=== PATIENT | male | born 1960 | race Caucasian/White ===

== ENCOUNTER 2019-11-06 05:40 | Emergency (ER) | payer BC, OTHER ==
--- NOTE | 2019-11-06 05:50 | ED.PDOC ---
History of Present Illness - General Chief Complaint: Respiratory Problem Stated Complaint: right side pain, SOB Time Seen by Provider: 11/06/19 05:41 Source: patient, RN notes reviewed, Vital Signs reviewed Exam Limitations: no limitations - History of Present Illness Initial Comments: Pt is a 59 yo male wwith [facility] of [facility], on Xarelto, who presents to ED with 1 week h/o right neck and chest pain. 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 The pain has gotten worse and now invlves right chest area. Describes it as his chest "feels thick." Has had mild SOB. Denies fever, cough, nausea, near syncope, abdominal pain or other concerns. Allergies/Adverse Reactions: Allergies NO KNOWN ALLERGY Allergy (Verified 11/06/19 05:53) Home Medications: Ambulatory Orders Acetaminophen W/ Codeine [Tylenol W/ CODEINE #3] 1 tablet PO Q6H PRN #20 11/06/19 Cyclobenzaprine HCl [Flexeril] 10 mg PO Q8H PRN #15 tab 11/06/19 Losartan Potassium 50 mg PO DAILY 11/06/19 Rivaroxaban [Xarelto] 20 mg PO DAILY 11/06/19 Rosuvastatin Calcium 10 mg PO DAILY 11/06/19 Review of Systems - Review of Systems Constitutional: Denies: chills, fever, weakness EENTM: Denies: blurred vision, nose congestion, throat pain Respiratory: States: short of breath. Denies: cough, wheezing Cardiology: States: chest pain. Denies: edema, palpitations, syncope Gastrointestinal/Abdominal: Denies: abdominal pain, nausea, vomiting Genitourinary: Denies: dysuria, frequency, hematuria Musculoskeletal: States: muscle pain, neck pain Skin: States: no symptoms reported Neurological: Denies: headache, paresthesia, weakness Endocrine: States: no symptoms reported All other Systems: Reviewed and Negative Family Medical History - Family History Mother Family History: Unknown Physical Exam - Physical Exam General Appearance: Alert, Comfortable, No apparent distress Ears, Nose, Throat: normal pharynx Neck: other - No vertebral tenderness. TTP right paraspinous muscles and right trapezius Respiratory: chest non-tender, lungs clear, normal breath sounds, no respiratory distress, no accessory muscle use Cardiovascular/Chest: normal peripheral pulses, no edema, irregularly irregular Gastrointestinal/Abdominal: non tender, soft, no pulsatile mass Back Exam: no CVA tenderness, no vertebral tenderness Extremity: normal range of motion, non-tender, normal inspection, no pedal edema Neurologic: no motor/sensory deficits, alert, normal mood/affect Skin Exam: normal color, warm/dry Progress - Progress Progress: 11/06/19 06:56 Pt resting comfortably. Pain improved. Denies SOB. D/W pt negative D dimer and initial troponin. he agrees with repeat troponin in ED. Care transferred to Dr. Blanco for final dispo. - Results/Orders Results/Orders: EKG--atrial fibrillation, rate 81, nml QRS interval, nonspecific T wave abnormality Departure - Departure Clinical Impression: Atypical chest pain, Muscle strain A-fib Qualifiers: Atrial fibrillation type: longstanding persistent Qualified Code(s): I48.11 - Longstanding persistent atrial fibrillation Disposition: Discharge to Home or Self Care Condition: Good Departure Forms: ED Discharge - Pt. Copy, Patient Portal Self Enrollment Instructions: Muscle Strain (DC) Diet: resume usual diet Activity: increase activity as tolerated Prescriptions: Acetaminophen W/ Codeine [Tylenol W/ CODEINE #3] 1 tablet PO Q6H PRN #20 PRN Reason: Pain Cyclobenzaprine HCl [Flexeril] 10 mg PO Q8H PRN #15 tab PRN Reason: Mild To Moderate Pain Home Medications: Ambulatory Orders Acetaminophen W/ Codeine [Tylenol W/ CODEINE #3] 1 tablet PO Q6H PRN #20 11/06/19 Cyclobenzaprine HCl [Flexeril] 10 mg PO Q8H PRN #15 tab 11/06/19 Losartan Potassium 50 mg PO DAILY 11/06/19 Rivaroxaban [Xarelto] 20 mg PO DAILY 11/06/19 Rosuvastatin Calcium 10 mg PO DAILY 11/06/19 Comments: Follow up with your PCP in 1-2 days for recheck.
[2019-11-06] MEDS: ONDANSETRON INJ 4 MG/2 ML VIAL IV ONE (06:01)
[2019-11-06] MEDS: MORPHINE SULFATE INJ 10 MG/ML VIAL IV ONE (06:01)
--- NOTE | 2019-11-06 07:23 | RAD ---
EXAM: Chest,1 View HISTORY: right chest pain COMPARISON: None. TECHNIQUE: Chest one view AP FINDINGS: Trachea midline. Heart size normal. No consolidation, pulmonary edema, lung mass, pleural effusion, or pneumothorax. Thoracic spine degenerative disease. IMPRESSION: Unremarkable chest radiograph. Electronically signed by: Gerald Pascual MD 11/06/2019 7:21 AM CDT
--- NOTE | 2019-11-06 07:29 | CT ---
EXAM: CT cervical spine without contrast HISTORY: neck pain COMPARISON: None. TECHNIQUE: Cervical spine axial images acquired without contrast. Coronal and sagittal reformats created. Exam performed according to departmental dose-optimization program which includes automated exposure control, adjustment of mA and/or kV according to patient size, and/or use of iterative reconstruction technique. FINDINGS: No acute cervical spine fracture or subluxation. Small ossifications between C2 dens superior aspect and clivus inferior aspect. Marked atlantodental degenerative joint change. C2/C3: Left-sided osteophytes causing mild left neuroforaminal stenosis. C3/C4:Left-sided osteophytes causing mild left neuroforaminal stenosis. C4/C5: No significant central canal or neuroforaminal stenosis. C5/C6:Left-sided osteophytes causing mild left neuroforaminal stenosis. C6/C7: No significant central canal or neuroforaminal stenosis. C7/T1: No significant central canal or neuroforaminal stenosis. No significant cervical disc height loss. Moderate, bilateral, uncovertebral and facet, degenerative joint changes throughout cervical spine. No paraspinal hematoma. Partial opacification of left mastoid air cells. IMPRESSION: Mild cervical spine degenerative disease. Electronically signed by: Gerald Pascual MD 11/06/2019 7:28 AM CDT
[2019-11-06 09:22] VITALS: BP 117/81; TEMP 98.1; O2SAT 97
== END 2019-11-06 09:17 | disposition home or self-care (01) ==
LOC: ER 05:40
DX: R07.89 Other chest pain (principal); I48.11 Longstanding persistent atrial fibrillation; T14.8XXA Other injury of unspecified body region, initial encounter; M54.2 Cervicalgia; Z79.01 Long term (current) use of anticoagulants; X50.9XXA Other and unspecified overexertion or strenuous movements or postures, initial encounter; Y92.9 Unspecified place or not applicable
CPT/HCPCS: 36415; 71045; 72125; 80053; 84484; 85025; 85379; 93005; J2270; J2405

== ENCOUNTER → 2019-12-02 | Outpatient (CLI) | payer BC ==
--- NOTE | 2019-12-03 10:12 | MRI ---
EXAM DESCRIPTION: Cervical Spine: MRI. CLINICAL HISTORY: 59 years Male RADICULOPATHY COMPARISON: CT scan cervical spine without contrast November 05. Radiograph cervical spine November 24. TECHNIQUE: Multiplanar, high-field MRI, multiple sequences, non-contrast Cervical spine. FINDINGS: C3-C4: Normal signal disc with disc space preserved. Small uncinate spur on the left. Mild to moderate neural foraminal narrowing. Bilateral mild facet hypertrophic arthrosis. C4-C5: Normal signal in the disc with minimal disc space loss. Tiny left posterior disc bulge abutting the left ventral cord and the left C5 nerve. Small left uncinate spur. Minimal narrowing of the left neural foramen. Mild to moderate narrowing of the canal. Mild degenerative hypertrophy of the right facet with mild neural foraminal narrowing. C5-C6: Minimal disc desiccation with disc space maintained. Left posterior disc bulge and left uncinate spur. Minimal endplate reactive changes on the left. Borderline left neural foraminal stenosis. Bilateral facet joints are unremarkable with posterior flavum ligaments and minimally thickened. Borderline left paracentral canal stenosis. C6-C7: Minimal disc desiccation with no bulging. Disc space maintained. Facet joints and posterior ligaments are negative. Canal and neural foramina are patent. Normal signal in the C2-C3 disc, C7-T1 disc, and T1-T2 disc with no bulging. Disc spaces preserved. Canal and neural foramina are patent. Facet joints unremarkable. Spinal alignment slightly kyphotic at the upper levels.. No cord compression or cord edema. Atlantoaxial joint with arthrosis and minimal joint swelling.. Base of the cerebellar tonsils is at the level of the foramen magnum. Paravertebral soft tissues are negative.. Vertebral bodies are not compressed at any level. Normal marrow signal in the remaining vertebral bodies and the posterior elements. IMPRESSION: 1. Left posterior C4-C5 disc bulge abutting the cord and the left C5 nerve. Minimal narrowing of the left neural foramen. 2. Left side spondylosis C5-C6 with uncinate spur resulting in borderline left neural foraminal stenosis. Electronically signed by: Joel Babb MD 12/03/2019 10:11 AM CDT
== END ==
LOC: MRI 12:31
PROVIDERS: ATTEND Nurse Practitioner Family
DX: M47.22 Other spondylosis with radiculopathy, cervical region (principal); M50.921 Unspecified cervical disc disorder at C4-C5 level; M25.78 Osteophyte, vertebrae; M48.02 Spinal stenosis, cervical region